=== PATIENT | female | born 1970 | race Caucasian/White ===

== ENCOUNTER → 2017-07-13 | Outpatient (CLI) | payer OTHER ==
[~2017-07-13] MED LIST: DAYPRO600 M1 PO; DILANTIN100 MG PO; FLEXERIL5 MG PO; GEODON80 MG PO; HALDOL5 MG; HYDROCODONE BIT1 T11 PO; KEFLEX500 MG PO; MOTRIN800 MG PO; NEURONTIN800 MG PO; PERCOCET 325 MG1 TA2 PO; SEROQUEL XR400 MG PO; SEROQUEL100 MG PO; TOPAMAX200 MG PO; VALIUM10 MG; VALIUM5 MG PO; VICODIN 5/500 505 MG PO; XANAX XR2 MG PO
[2017-07-13 15:34] LABS: BASO % 0.7 % (0.0-1.0); EOS # 0.2 10*3/uL (0.0-0.4); EOS % 3.6 % (1.0-4.0); HEMOGLOBIN 13.7 g/dl (12.0-16.0); LYMPH # 2.7 10*3/uL (1.3-4.4); LYMPH % 49.5 % (27.0-41.0); MEAN CELL VOLUME 98.5 fl (81.0-99.0); MEAN CORPUSCULAR HGB 33.7 pg (27.0-31.0); MEAN CORPUSCULAR HGB CONC 34.3 g/dl (33.0-37.0); MEAN PLATELET VOLUME 11.5 fl (9.6-12.3); MONO # 0.4 10*3/uL (0.1-1.0); MONO % 7.6 % (3.0-9.0); NEUT # 2.1 10*3/uL (2.3-7.9); NEUT % 38.4 % (47.0-73.0); PLATELET COUNT AUTOMATED 142 10*3/uL (130-400); RED BLOOD COUNT 4.06 10*6/uL (4.10-5.10); RED CELL DISTRI WIDTH 14.2 % (0-14.5); WHITE BLOOD COUNT 5.5 10*3/uL (4.8-10.8)
[2017-07-13 15:52] LABS: ALBUMIN 3.8 gm/dl (3.1-4.5); CREATININE 1.19 mg/dL (0.55-1.02); POTASSIUM 3.9 mmol/L (3.5-5.1); TOTAL PROTEIN 7.3 gm/dL (6.4-8.2)
[2017-07-13 16:04] LABS: PHENYTOIN (DILANTIN) 9.3 ug/ml (10-20)
== END | disposition home or self-care (01) ==
LOC: MAMMO 14:07 → LAB 14:07 → MAMMO 14:20
PROVIDERS: Family Medicine
DX: Z12.31 Encounter for screening mammogram for malignant neoplasm of breast (principal); G40.909 Epilepsy, unspecified, not intractable, without status epilepticus

== ENCOUNTER → 2018-12-04 | Outpatient (CLI) | payer OTHER | END | disposition home or self-care (01) | LOC: MAMMO 13:01 | DX: N63.11 Unspecified lump in the right breast, upper outer quadrant (principal) ==

== ENCOUNTER → 2019-07-01 | Outpatient (CLI) | payer OTHER | END | disposition home or self-care (01) | LOC: US 11:12 | DX: R92.8 Other abnormal and inconclusive findings on diagnostic imaging of breast (principal) ==

== ENCOUNTER 2020-06-28 21:16 | Emergency (ER) | payer OTHER ==
[~2020-06-28] VITALS: Ht 175.2 cm; Wt 95.3 kg
[2020-06-28 21:23] VITALS: BP 148/82
== END 2020-06-28 21:56 | disposition left against medical advice (07) ==
LOC: ED 21:16
DX: R56.9 Unspecified convulsions (principal); F32.9 Major depressive disorder, single episode, unspecified; F41.9 Anxiety disorder, unspecified; J45.909 Unspecified asthma, uncomplicated; F17.200 Nicotine dependence, unspecified, uncomplicated; Z79.899 Other long term (current) drug therapy; Z90.49 Acquired absence of other specified parts of digestive tract; Z98.890 Other specified postprocedural states; Z98.51 Tubal ligation status

== ENCOUNTER → 2021-02-11 | Day surgery (SDC) | payer OTHER ==
[~2021-02-11] VITALS: Ht 160 cm; Wt 68.9 kg
[~2021-02-11] MED LIST changes: +ALPRAZOLAM2 MG PO; +DEXTROAMPH SACC20 M1 PO; +OXCARBAZEPINE600 MG PO; +PERCOCET 5-3251 EACH PO
[2021-02-11 07:34] VITALS: BP 131/79
[2021-02-11 08:05] VITALS: BP 104/65
[2021-02-11 08:20] VITALS: BP 104/62
[2021-02-11 08:35] VITALS: BP 110/71
== END | disposition home or self-care (01) ==
LOC: SDC 02-08 09:30
PROVIDERS: ATTEND Surgery
DX: C44.310 Basal cell carcinoma of skin of unspecified parts of face (principal); F41.9 Anxiety disorder, unspecified; F32.9 Major depressive disorder, single episode, unspecified; J45.909 Unspecified asthma, uncomplicated; F17.210 Nicotine dependence, cigarettes, uncomplicated; Z88.5 Allergy status to narcotic agent; Z86.73 Personal history of transient ischemic attack (TIA), and cerebral infarction without residual deficits; Z90.710 Acquired absence of both cervix and uterus; Z79.899 Other long term (current) drug therapy; Z20.822 Contact with and (suspected) exposure to COVID-19

== ENCOUNTER → 2022-04-26 | Outpatient (CLI) | payer OTHER ==
[2022-04-26 11:27] LABS: BASO # 0.1 10*3/uL (0.0-0.1); BASO % 0.6 % (0.0-1.0); EOS # 0.3 10*3/uL (0.0-0.4); EOS % 2.9 % (1.0-4.0); HEMATOCRIT 39.3 % (37.0-47.0); LYMPH # 2.2 10*3/uL (1.3-4.4); LYMPH % 22.4 % (27.0-41.0); MEAN CELL VOLUME 95.6 fl (81.0-99.0); MEAN CORPUSCULAR HGB 32.4 pg (27.0-31.0); MEAN CORPUSCULAR HGB CONC 33.8 g/dl (33.0-37.0); MEAN PLATELET VOLUME 10.2 fl (9.6-12.3); MONO # 0.6 10*3/uL (0.1-1.0); MONO % 5.7 % (3.0-9.0); NEUT # 6.7 10*3/uL (2.3-7.9); NEUT % 67.9 % (47.0-73.0); PLATELET COUNT AUTOMATED 158 10*3/uL (130-400); RED BLOOD COUNT 4.11 10*6/uL (4.10-5.10); RED CELL DISTRI WIDTH 13.9 % (0-14.5); WHITE BLOOD COUNT 9.9 10*3/uL (4.8-10.8)
[2022-04-26 11:55] LABS: ALKALINE PHOSPHATASE 89 U/L (46-116); BUN 9 mg/dl (9-23); CHLORIDE 102 mmol/L (98-107); CHOLESTEROL 157 mg/dL (<200); CREATININE 0.79 mg/dL (0.55-1.02); LDL CHOLESTEROL 57 mg/dL (9-159); POTASSIUM 3.9 mmol/L (3.4-5.1); SGPT/ALT 9 U/L (10-49); TOTAL PROTEIN 6.9 gm/dL (6.0-8.0); TRIGLYCERIDES 96 mg/dl (<150)
[2022-04-26 12:03] LABS: PHENYTOIN (DILANTIN) < 2.0 ug/ml (10-20)
== END | disposition home or self-care (01) ==
LOC: LAB 11:02
PROVIDERS: ATTEND Family Medicine
DX: Z51.81 Encounter for therapeutic drug level monitoring (principal); G40.009 Localization-related (focal) (partial) idiopathic epilepsy and epileptic syndromes with seizures of localized onset, not intractable, without status epilepticus

== ENCOUNTER → 2022-05-03 | Outpatient (CLI) | payer OTHER | END | disposition home or self-care (01) | LOC: MAMMO 03-28 14:00 | PROVIDERS: ATTEND Family Medicine | DX: Z12.31 Encounter for screening mammogram for malignant neoplasm of breast (principal); N64.9 Disorder of breast, unspecified ==

== ENCOUNTER → 2022-05-19 | Outpatient (CLI) | payer OTHER | END | disposition home or self-care (01) | LOC: MAMMO 13:30 | PROVIDERS: ATTEND Family Medicine | DX: N60.01 Solitary cyst of right breast (principal); N63.11 Unspecified lump in the right breast, upper outer quadrant ==